=== PATIENT | male | born 1995 | race Caucasian/White ===

== ENCOUNTER 2017-04-05 23:35 | Emergency (ER) | payer OTHER ==
[~2017-04-05] VITALS: Ht 165.1 cm; Wt 94.0 kg
[~2017-04-05 23:35] MED LIST: ALBU17I
[2017-04-05 23:37] VITALS: BP 140/77; PULSE 97; RESP 16; TEMP 98; O2SAT 98
[2017-04-05] MEDS ORDERED: ALBUAER3 INH (23:58)
--- NOTE | 2017-04-05 23:58 | PD ---
HPI Chief Complaint: Cold / Flu Symptoms Time Seen by Provider: 23:46 Travel History International Travel<30 days: No Contact w/Intl Traveler<30days: No Traveled to known affect area: No History of Present Illness HPI Patient is a 21-year-old male with a history of reactive airway disease presents emergency department for evaluation of cough for the past 4 days, denies any body aches fevers abdominal pain sputum production. He states he has been coughing and now is having some right sided chest wall pain when he coughs in the midaxillary line. Denies any shortness of breath. States symptoms are moderate, gradually worsening, exacerbated when he is in a cold air environment. PFSH Past Medical History Asthma: Yes (as a child) Diminished Hearing: No Immunizations Current: Yes Tetanus Vaccination: < 5 Years Influenza Vaccination: No Past Surgical History Surgical History: No Previous Surgery Social History Alcohol Use: No Tobacco Use: No Substance Use: No Allergies-Medications (Allergen,Severity, Reaction): Coded Allergies: No Known Allergies (Verified Adverse Reaction, Unknown, 04/05/17) Reported Meds & Prescriptions Reported Meds & Active Scripts Active Proair Hfa 8.5 GM Inh (Albuterol Sulfate) 90 Mcg/Act Aer 2 Puff INH Q6H PRN 108 mcg/actuation Reported Proventil Mdi (Albuterol Sulfate) 17 Gm Aero Review of Systems Except as stated in HPI: all other systems reviewed are Neg Physical Exam Narrative GENERAL: Well-nourished, well-developed patient. Quite pleasant in no obvious distress. SKIN: Focused skin assessment warm/dry. No rash no wound. HEAD: Normocephalic. EYES: No scleral icterus. No injection or drainage. ENT: TMs clear bilaterally, oropharynx clear and moist. NECK: Supple, trachea midline. No JVD or lymphadenopathy. CARDIOVASCULAR: Regular rate and rhythm without murmurs, gallops, or rubs. RESPIRATORY: Breath sounds equal bilaterally. No accessory muscle use. Lung sounds clear bilaterally. GASTROINTESTINAL: Abdomen soft, non-tender, nondistended. MUSCULOSKELETAL: No cyanosis, or edema. BACK: Nontender without obvious deformity. No CVA tenderness. Data Data Last Documented VS Vital Signs Date Time Temp Pulse Resp B/P (MAP) Pulse Ox O2 Delivery O2 Flow Rate FiO2 04/05/17 23:37 98.0 97 16 140/77 (98) 98 Room Air Orders Orders Ed Discharge Order (04/05/17 23:59) [facility] Medical Decision Making Medical Screen Exam Complete: Yes Emergency Medical Condition: Yes Differential Diagnosis URI, pneumonia highly unlikely, influenza highly unlikely Narrative Course Patient room to the emergency department, reassuring physical exam vital signs within normal limits and he appears well. 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 Discussed with him there is no need for antibiotics nor chest x-ray at this time , discussed symptomatic management Mucinex DM and return to ED criteria as well as follow-up with a primary care physician. He is stable for discharge per Diagnosis Primary Impression: URI (upper respiratory infection) Departure Forms: Tests/Procedures, Work Release Enter return to work date: Apr 08, 2017 Med/Other Pt SpecificInfo: Prescription(s) given Scripts Albuterol 8.5 GM Inh (Proair Hfa 8.5 GM Inh) 90 Mcg/Act Aer 2 PUFF INH Q6H Y for SHORTNESS OF BREATH, #1 INHALER 1 Refill 108 mcg/actuation Prov: Vaibhav Adamson MD 04/05/17 Disposition: 01 DISCHARGE HOME Condition: Stable Vaibhav Adamson MD Apr 05, 2017 23:58
== END 2017-04-06 00:14 | disposition home or self-care (01) ==
LOC: NEPD 23:35
DX: J06.9 Acute upper respiratory infection, unspecified (principal); J45.909 Unspecified asthma, uncomplicated
CPT/HCPCS: 99283